=== PATIENT | male | born 1965 | race Caucasian/White ===

== ENCOUNTER → 2018-08-06 | Outpatient (CLI) | payer BC ==
[~2018-08-06] MED LIST: BACTRIM DS 8001 TA1 PO; KEFLEX500 MG PO
== END | disposition home or self-care (01) ==
LOC: CARD 08:30
DX: I08.0 Rheumatic disorders of both mitral and aortic valves (principal); I09.9 Rheumatic heart disease, unspecified; I10 Essential (primary) hypertension; Z82.49 Family history of ischemic heart disease and other diseases of the circulatory system

== ENCOUNTER → 2018-09-18 | Outpatient (CLI) | payer BC ==
[2018-09-18 09:53] LABS: BUN 13 mg/dl (7-24); CHLORIDE 101 mmol/L (98-107); CREATININE 0.98 mg/dL (0.70-1.30); POTASSIUM 3.6 mmol/L (3.5-5.1); SODIUM 137 mmol/L (136-145)
== END | disposition home or self-care (01) ==
LOC: LAB 08:23
PROVIDERS: Internal Medicine Cardiovascular Disease
DX: I10 Essential (primary) hypertension (principal)

== ENCOUNTER → 2019-09-16 | Outpatient (CLI) | payer BC | END | disposition home or self-care (01) | LOC: CARD 07:15 | DX: I06.1 Rheumatic aortic insufficiency (principal) ==